=== PATIENT | female | born 1985 ===

== ENCOUNTER 2017-09-29 11:32 | Emergency (ER) | payer SELFPAY ==
[2017-09-29] MEDS ORDERED: Ketorolac 60 MG/2 ML SDV IM ONE (11:54)
--- NOTE | 2017-09-29 11:54 | EDM.PDOC ---
ED HPI GENERAL MEDICAL PROBLEM - General Chief Complaint: Lower Extremity Injury/Pain Stated Complaint: LEFT ANKLE PAIN Time Seen by Provider: 09/29/17 11:49 Source of Information: Reports: Patient History Limitations: Reports: No Limitations - History of Present Illness INITIAL COMMENTS - FREE TEXT/NARRATIVE: HISTORY AND PHYSICAL: History of present illness: [Is brought to the ER by her boss for complaints of left ankle pain. She was walking outside while at work this morning when she slipped on the ice, causing her ankle to roll, falling on top of her ankle. She complains of significant pain to her L lateral ankle. Has been unable to bear any weight on her ankle since the fall occurred. No previous history of injury or surgery to her L lower leg. ] Review of systems: As per history of present illness and below otherwise all systems reviewed and negative. Past medical history: As per history of present illness and as reviewed below otherwise noncontributory. Surgical history: As per history of present illness and as reviewed below otherwise noncontributory. Social history: No reported history of drug or alcohol abuse. Family history: As per history of present illness and as reviewed below otherwise noncontributory. Physical exam: HEENT: Atraumatic, normocephalic. Extremities: Swelling and ecchymosis present to Left ankle and distal lower leg. Pedal pulses are 2+. Cap RF <2 seconds. Is exquisitely tender with palpation over lateral left lower leg. Patient refuses range of motion due to pain. Neuro: Awake, alert, oriented. Motor and sensory unremarkable throughout. Exam nonfocal. Diagnostics: [L foot xray, L ankle xray] Therapeutics: [Toradol 60mg IM] Impression: [Left distal fibula fracture, oblique, nondisplaced] Plan: [Patient is placed in a posterior splint to left lower leg. She will follow-up with Dr. Paula at 9 AM tomorrow morning. We discussed nonweightbearing and the use of crutches. Urged her to comply with non weightbearing. She verbalizes understanding. Tylenol and anti-inflammatories as needed for discomfort. Return to ER as needed as discussed. Rx written for tramadol 50 mg #10 sig: One by mouth every 4-6 hours as needed for pain 0 refills.] Definitive disposition and diagnosis as appropriate pending reevaluation and review of above. Right Ankle Pain Score (Numeric/FACES): 8 - Related Data Allergies Allergy/AdvReac Type Severity Reaction Status Date / Time No Known Allergies Allergy Verified 09/29/17 11:46 Home Meds: Home Meds . [No Known Home Meds] 09/29/17 [History] Review of Systems - Review of Systems Review Of Systems: ROS reveals no pertinent complaints other than HPI. ED EXAM, GENERAL - Physical Exam Exam: See Below Course - Vital Signs Last Recorded V/S: Last Vital Signs Temp 97.7 F 09/29/17 11:46 Pulse 72 09/29/17 14:44 Resp 18 09/29/17 14:44 BP 127/70 09/29/17 14:44 Pulse Ox 100 09/29/17 14:44 - Orders/Labs/Meds Meds: Medications Discontinued Medications Generic Name Dose Route Start Last Admin Trade Name Freq PRN Reason Stop Dose Admin Ketorolac Tromethamine 60 mg 09/29/17 11:54 09/29/17 12:31 Toradol IM 09/29/17 11:55 60 mg ONETIME ONE Administration Departure - Departure Time of Disposition: 13:55 Disposition: Home, Self-Care 01 Condition: Good Clinical Impression: Fracture of fibula, distal, closed - Discharge Information Instructions: Fibular Ankle Fracture Treated With or Without Immobilization, Adult Referrals: Brittney Barbosa MD [Physician] - PCP,None [Primary Care Provider] - Forms: ED Department Discharge Additional Instructions: The following information is given to patients seen in the emergency department who are being discharged to home. This information is to outline your options for follow-up care. We provide all patients seen in our emergency department with a follow-up referral. The need for follow-up, as well as the timing and circumstances, are variable depending upon the specifics of your emergency department visit. If you don't have a primary care physician on staff, we will provide you with a referral. We always advise you to contact your personal physician following an emergency department visit to inform them of the circumstance of the visit and for follow-up with them and/or the need for any referrals to a consulting specialist. The emergency department will also refer you to a specialist when appropriate. This referral assures that you have the opportunity for follow-up care with a specialist. All of these measure are taken in an effort to provide you with optimal care, which includes your follow-up. Under all circumstances we always encourage you to contact your private physician who remains a resource for coordinating your care. When calling for follow-up care, please make the office aware that this follow-up is from your recent emergency room visit. If for any reason you are refused follow-up, please contact the [facility] emergency department at and asked to speak to the emergency department charge nurse. [facility] [address], [address] [place] [address] Follow-up at the clinic listed above with Dr. Samuels 9 AM tomorrow morning. Stay off your left leg completely. Use crutches at all times. Rest, elevate your leg, you may apply ice, take ibuprofen alternating with Tylenol if needed for discomfort. You may take tramadol as needed for severe pain. Return to ER as needed as discussed.
--- NOTE | 2017-09-29 13:26 | CR ---
EXAMINATION: Left ankle and left foot HISTORY: Pain COMPARISON: None TECHNIQUE: 3 views of the left ankle and 2 views of the left foot FINDINGS: There is an oblique nondisplaced distal fibular fracture identified. Mild overlying soft ti ssue swelling. Ankle mortise and talar dome appear intact. Bone mineralization is otherwise normal. T he remaining osseous structures within the left foot. Intact. IMPRESSION: 1. Nondisplaced oblique distal fibular fracture.
== END 2017-09-29 14:49 | disposition home or self-care (01) ==
LOC: MW.ED 11:32
DX: S82.435A Nondisplaced oblique fracture of shaft of left fibula, initial encounter for closed fracture (principal); W01.0XXA Fall on same level from slipping, tripping and stumbling without subsequent striking against object, initial encounter
CPT/HCPCS: 73610; 73620; 96372; 99283; J1885; 99282